=== PATIENT | female | born 1995 | race Caucasian/White ===

== ENCOUNTER 2019-04-30 12:59 | Emergency (ER) | payer MEDICAID, OTHER ==
[~2019-04-30] VITALS: Ht 162.6 cm; Wt 70.5 kg
[~2019-04-30 12:59] MED LIST: AMOXICILLIN 8751 TAB PO; FAT ABSORB1 CAP PO; MOTRIN 600600 MG/TAB PO; MULTIPLE VITAMI1 CAP PO; NORCO 325 MG-51 TAB PO; PAXIL 10MG10 MG PO; PERCOCET 325 MG1 TA2 PO; PRENATAL1 TA1 PO; SLOW FE45 MG PO; VITAMIN B610 MG PO; ZOFRAN 4MG T4 MG/TAB PO
[2019-04-30 13:02] VITALS: TEMP 97.7
[2019-04-30] MEDS ORDERED: PRENATAL PO (13:08)
[2019-04-30] MEDS ORDERED: ZITHROMAX Z PA250 MG PO (13:27)
[2019-04-30 13:44] VITALS: BP 120/78; PULSE 97
== END 2019-04-30 13:46 | disposition home or self-care (01) ==
LOC: COL.ER 12:59
DX: O99.512 Diseases of the respiratory system complicating pregnancy, second trimester (principal); J20.9 Acute bronchitis, unspecified; Z3A.21 21 weeks gestation of pregnancy

== ENCOUNTER 2019-07-07 11:05 | Emergency (ER) | payer OTHER, MEDICAID ==
[~2019-07-07] VITALS: Ht 162.6 cm; Wt 77.3 kg
[~2019-07-07 11:05] MED LIST changes: +PRENATAL PO; +ZITHROMAX Z PA250 MG PO
[2019-07-07 11:42] VITALS: TEMP 98.4
[2019-07-07 11:59] LABS: COLLECTION METHOD CLEAN CATCH
[2019-07-07 12:17] LABS: MUCOUS Present /lpf; PH 7 (5-8); SQUAMOUS EPITHELIAL 0-2 /hpf; URINE APPEARANCE Hazy; URINE BACTERIA Rare /hpf; URINE BILIRUBIN Negative (NEGATIVE); URINE BLOOD Negative (NEGATIVE); URINE COLOR Yellow; URINE GLUCOSE Negative (NEGATIVE); URINE KETONE Negative (NEGATIVE); URINE LEUKOCYTE ESTERASE Trace (NEGATIVE); URINE NITRATE Negative (NEGATIVE); URINE PROTEIN(semi-quant) 1+ (NEGATIVE); URINE RBC 0-2 /hpf; URINE UROBILINOGEN Negative (NEGATIVE)
--- NOTE | 2019-07-07 12:40 | NUR ---
RN to bedside for FHR strip. , 29wks per patient. Patient in ER for flu like symptoms. FHR strip obtained. FHR baseline 145-150bpm, moderate variability, no decelerations, audible movement. FHR appropriate for gestational age. Denies any complications/concerns.
[2019-07-07] MEDS ORDERED: TAMIFLU 75MG75 MG PO (13:08)
[2019-07-07 13:31] VITALS: BP 121/76; PULSE 94
[2019-07-08] MEDS ORDERED: ZOFRAN ODT4 MG PO (03:01)
== END 2019-07-07 13:33 | disposition home or self-care (01) ==
LOC: COL.ER 11:05
PROVIDERS: Emergency Medicine
DX: O99.513 Diseases of the respiratory system complicating pregnancy, third trimester (principal); J10.1 Influenza due to other identified influenza virus with other respiratory manifestations; O99.343 Other mental disorders complicating pregnancy, third trimester; F41.9 Anxiety disorder, unspecified; Z90.89 Acquired absence of other organs; Z3A.29 29 weeks gestation of pregnancy

== ENCOUNTER 2019-07-08 02:38 | Emergency (ER) | payer OTHER, MEDICAID ==
[~2019-07-08] VITALS: Ht 162.6 cm; Wt 77.3 kg
[~2019-07-08 02:38] MED LIST changes: +TAMIFLU 75MG75 MG PO
[2019-07-08 02:42] VITALS: BP 107/60; TEMP 97.4
[2019-07-08] MEDS ORDERED: ZOFRAN ODT4 MG PO (03:01)
[2019-07-08 03:19] LABS: HEMOGLOBIN 11.3 g/dl (12.5-16.0); MEAN CELL VOLUME 91 fl (80.0-100.0); MEAN CORPUSCULAR HEMOGLOBIN 31 pg (27.0-31.0); MEAN CORPUSCULAR HGB CONC 34 g/dl (33.0-37.0); MEAN PLATELET VOLUME 10.4 fl (7.4-10.4); PLATELET COUNT 171 K/mm3 (130-400); RED BLOOD COUNT 3.62 M/mm3 (4.10-5.30); REDCELL DISTRIBUTION WIDTH-CV 12.6 % (11.5-14.5)
[2019-07-08 03:23] LABS: HEMATOCRIT 32.9 % (37.0-47.0)
--- NOTE | 2019-07-08 03:30 | NUR ---
RN at bedside for FHR monitoring. . 29+ weeks per patient. Patient seen 07/07/19 in ED for flu-like symptoms. Patient states she was diagnosed with Influenza and was seen in ED by yesterday. FHR strip obtained. FHR baseline 125bpm with moderate variability. Prolonged accels noted. No decels noted. Audible movement. FHR tracing appropriate for gestational age. Patient denies any -related complications or concerns. Encouraged patient to increase fluid intake as tolerable while sick.
[2019-07-08 03:31] LABS: ALBUMIN 3.9 gm/dL (3.5-5.0); BILIRUBIN,TOTAL 0.5 mg/dL (0.0-1.0); CALCIUM 8.9 mg/dL (8.4-10.2); CREATININE, serum 0.48 (0.52-1.25); POTASSIUM 3.5 mmol/L (3.4-5.0)
[2019-07-08 03:55] LABS: BAND 20 % (0-10); LYMPHOCYTE 5 % (20.0-51.0); METAMYELOCYTE 3 % (0-0); NEUTROPHILS 61 % (42.0-75.2); PLATELET ESTIMATE NORMAL (NORMAL)
[2019-07-08 04:20] VITALS: PULSE 97
== END 2019-07-08 04:20 | disposition home or self-care (01) ==
LOC: COL.ER 02:38
PROVIDERS: Emergency Medicine
DX: O99.513 Diseases of the respiratory system complicating pregnancy, third trimester (principal); J10.1 Influenza due to other identified influenza virus with other respiratory manifestations; O21.9 Vomiting of pregnancy, unspecified; Z90.89 Acquired absence of other organs; Z3A.29 29 weeks gestation of pregnancy
CPT/HCPCS: J2405; J2550; J7030

== ENCOUNTER 2019-08-15 09:16 | Outpatient (CLI) | payer MEDICAID ==
[~2019-08-15] VITALS: Ht 160 cm; Wt 80.0 kg
[~2019-08-15 09:16] MED LIST changes: +ZOFRAN ODT4 MG PO
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
[2019-08-15 10:30] VITALS: BP 126/71; PULSE 82; TEMP 97.6
== END 2019-08-15 10:30 | disposition home or self-care (01) ==
LOC: LDRO 09:16
DX: O62.9 Abnormality of forces of labor, unspecified (principal); Z3A.35 35 weeks gestation of pregnancy

== ENCOUNTER 2019-08-25 06:26 | Emergency (ER) | payer MEDICAID ==
[~2019-08-25] VITALS: Ht 160 cm; Wt 81.8 kg
[2019-08-25 06:30] VITALS: PULSE 88; TEMP 97.3
--- NOTE | 2019-08-25 07:01 | NUR ---
Patient in ER for n/v/d. Reports good movement and irregular cramping. Denies vaginal bleeding, leaking of fluid, or painful contractions. , 37wks. Denies concerns. FHR 120s, moderate variability, accelerations, no decelerations. Irritability show per toco. Abdomen palpates soft. Instructed to call [facility] or L&D with any concerns. Verbalized understanding.
[2019-08-25 08:13] LABS: BASO % 0.3 % (0.0-2.0); EOS # 0.3 (0.0-0.7); EOS % 2.4 % (0-4.0); GRAN # 9.2 (1.4-6.5); GRAN % 78.3 % (42.2-75.2); HEMOGLOBIN 11.1 g/dl (12.5-16.0); LYMPH # 1.3 (1.2-3.4); LYMPH % 11.3 % (20.0-51.0); MEAN CELL VOLUME 90 fl (80.0-100.0); MEAN CORPUSCULAR HEMOGLOBIN 29 pg (27.0-31.0); MEAN CORPUSCULAR HGB CONC 33 g/dl (33.0-37.0); MONO # 0.7 (0.1-0.6); MONO % 6.3 % (1.7-9.3); PLATELET COUNT 172 K/mm3 (130-400); REDCELL DISTRIBUTION WIDTH-CV 13.3 % (11.5-14.5)
[2019-08-25 08:14] LABS: HEMATOCRIT 34.1 % (37.0-47.0)
[2019-08-25 08:18] LABS: ALBUMIN 3.8 gm/dL (3.5-5.0); BILIRUBIN,TOTAL 0.6 mg/dL (0.0-1.0); CALCIUM 8.9 mg/dL (8.4-10.2); CREATININE, serum 0.44 (0.52-1.25); POTASSIUM 4.2 mmol/L (3.4-5.0); TOTAL PROTEIN 7.1 gm/dL (6.4-8.2)
[2019-08-25 08:33] LABS: COLLECTION METHOD CLEAN CATCH
[2019-08-25 08:50] LABS: MUCOUS Present /lpf; PH 6 (5-8); URINE APPEARANCE Hazy; URINE BACTERIA None Seen /hpf; URINE BILIRUBIN Negative (NEGATIVE); URINE BLOOD Negative (NEGATIVE); URINE COLOR Yellow; URINE GLUCOSE Negative (NEGATIVE); URINE KETONE Negative (NEGATIVE); URINE LEUKOCYTE ESTERASE Negative (NEGATIVE); URINE NITRATE Negative (NEGATIVE); URINE PROTEIN(semi-quant) 1+ (NEGATIVE); URINE RBC 0-2 /hpf
[2019-08-25] MEDS ORDERED: PHENERGAN 25 TA25 MG PO (10:13)
[2019-08-25 10:30] VITALS: BP 123/67
== END 2019-08-25 10:30 | disposition home or self-care (01) ==
LOC: COL.ER 06:26
PROVIDERS: Emergency Medicine
DX: O21.2 Late vomiting of pregnancy (principal); O26.893 Other specified pregnancy related conditions, third trimester; R19.7 Diarrhea, unspecified; Z3A.37 37 weeks gestation of pregnancy
CPT/HCPCS: J2550; J7030

== ENCOUNTER 2019-09-07 07:11 | Inpatient (IN) | payer MEDICAID ==
[2019-09-07] VITALS (46 sets, daily range): BP systolic 95–143; BP diastolic 48–92; PULSE 68–137; TEMP 97.5–98.7
[~2019-09-07] VITALS: Ht 160 cm; Wt 81.8 kg
[~2019-09-07 07:11] MED LIST changes: +PHENERGAN 25 TA25 MG PO
--- NOTE | 2019-09-07 07:20 | NUR ---
Patient ambulatory to LR5 with significant other, changed into gown, FHR/TOCO monitors placed and explained. Patient denies any regular contractions, leaking of fluid, vaginal bleeding, or decreased movement. Plan of care discussed. Assessmennt completed/consents gone over and signed/ packet given. 0740: IV started in left hand per Lukas RN, blood obtained and to lab, LR infusing. Oriented to room and discussed plan. 0800: Pitocin induction discussed and patient agrees to plan. Pitocin started at 2mU per protocol. 0840: Dr. Julian at bedside and assessing patient and FHR strip. SVE per physician /-2 and AROM attempted and unsuccessful at this time. 0858: Patient calls out and states she thinks her water broke. This RN at bedside and towel wet with clear fluid and patient continuing ot leak fluid. SROM noted at this time. Dr. Julian called and notified.
[2019-09-07 08:22] LABS: BASO % 0.3 % (0.0-2.0); EOS # 0.3 (0.0-0.7); EOS % 2.2 % (0-4.0); GRAN # 11.4 (1.4-6.5); HEMOGLOBIN 11.6 g/dl (12.5-16.0); LYMPH # 1.6 (1.2-3.4); LYMPH % 11.1 % (20.0-51.0); MEAN CELL VOLUME 86 fl (80.0-100.0); MEAN CORPUSCULAR HEMOGLOBIN 29 pg (27.0-31.0); MEAN CORPUSCULAR HGB CONC 34 g/dl (33.0-37.0); MEAN PLATELET VOLUME 11.5 fl (7.4-10.4); MONO # 0.9 (0.1-0.6); MONO % 6.4 % (1.7-9.3); PLATELET COUNT 179 K/mm3 (130-400); RED BLOOD COUNT 3.95 M/mm3 (4.10-5.30); REDCELL DISTRIBUTION WIDTH-CV 13.4 % (11.5-14.5)
[2019-09-07 08:23] LABS: HEMATOCRIT 34.1 % (37.0-47.0)
--- NOTE | 2019-09-07 12:35 | NUR ---
Dr. Julian at bedside and assessing patient/FHR strip. SVE /-2 per physician. Orders to increase pitocin to 30mU as needed. 1350: Patient requesting epidural and Rafa Ruiz PHILOSOPHY AND RELIGION INSTRUCTOR notified. 1405: Patient sittin up on edge of bed and Rafa Ruiz at bedside for placement of epidural. 1412: Single shot given and patient tolerates well. 1417: Test dose given and patient tolerates well. 1420: Patient repositioned and safety precautions gone over. Plan of care discussed. 1445: Knight catheter placed and patient tolerates well. SVE-/-2 1515: Subtle late deceleration noted and patient repositioned. 1610: at bedside assessing patient and FHR strip. SVE per physician . Orders to sit up in silvia position. Patient repositioned and FHR baseline 125-130bpm. 1615: Patient sitting up with legs lowered and FHR decreases to 100-115 for approx. 2-3 minutes and spontaneously returns to baseline. 1640: SVE-- and patient right lateral with left leg in stirrup. 1650: Patient left lateral with right leg in stirrup. Dr. Julian at nurses station revewing FHR strip and updated.
[2019-09-07 15:36] LABS: TRICYCLIC ANTIDEPRESS URINE NEGATIVE
--- NOTE | 2019-09-07 17:00 | NUR ---
Dr Julian at bedside and SVE-/+2 Patient prepped for vaginal delivery. Bed taken apart 1703: Knight catheter removed and patient tolerates. Pericare done. 1706: Patient begins to push with contractions per Dr Ramírez orders. Patient vomits between contractions. 1711: Patient pushes with contractions and spontaneous viable baby boy head followed by body and to patient abdomen, Tamie RN assumes care of infant. Cord clamped and cut by physician and cord blood obtained. Dr. Julian begins to repair laceration. 1717: Spontaneous delivery of placenta and pitocin bolus started at 333mu per protocol. Fundal massage done/firm/bleeding WNL Pericare done, bed put together, patient repositioned and ice pack to perineum. Plan of care discussed.
--- NOTE | 2019-09-07 17:30 | NUR ---
Patient notified that UDS was positive for marijuana and that retail service lead merchandiser recommends not to breast feed and will place urine bag on baby to catch urine for screening. Patient agrees to plan
--- NOTE | 2019-09-07 19:00 | NUR ---
1900 EPID CATH REMOVED. REGULAR DIET TAKEN. SEVERAL VISITORS IN ROOM
--- NOTE | 2019-09-07 19:30 | NUR ---
1930 ATTEMPTED TO STAND. UNABLE TO BEAR WEIGHT ON LEFT LEG. RETURNED TO BED AND PERICARE DONE. TO WHEELCHAIR AND TO ROOM 207. TO BED AND ORIENTED TO ROOM. CHANDANA WELL.
--- NOTE | 2019-09-07 20:45 | NUR ---
2044 UP TO BR WITH SOME ASSIST. VOIDED 400CC AND PERICARE DONE. RETURNED TO BED. INT DCD.
[2019-09-08 03:00] VITALS: BP 108/86; PULSE 83; TEMP 98.2
[2019-09-08 07:10] VITALS: BP 113/74; PULSE 81; TEMP 97.4
[2019-09-08] MEDS ORDERED: IBU800 M1 PO (09:13)
--- NOTE | 2019-09-08 10:26 | NUR ---
Initial visit; Parents thanked Gift Shop Clerk for offering congratulations and God's blessings for the of their son. Gift Shop Clerk thanked family for choosing [facility].
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
[2019-09-08 12:30] VITALS: BP 122/81; PULSE 88; TEMP 97.4
[2019-09-08 15:15] VITALS: BP 122/86; PULSE 96; TEMP 97.7
--- NOTE | 2019-09-12 11:45 | NUR ---
The patient's baby cord blood tested positive for cannabinoids. A CPS report was made. Report # [id number]. The patient's baby is Jose Manuel Thakkar Dotina, [id number].
== END 2019-09-08 19:25 | disposition home or self-care (01) | DRG 807 ==
LOC: LDR 07:11 → OB 12:25
PROVIDERS: ADMIT Student in an Organized Health Care Education/Training Program
PROC: 10E0XZZ Delivery of Products of Conception, External Approach (ICD-10-PCS; principal; 2019-09-07)
PROC: 10907ZC Drainage of Amniotic Fluid, Therapeutic from Products of Conception, Via Natural or Artificial Opening (ICD-10-PCS; 2019-09-07)
PROC: 3E033VJ Introduction of Other Hormone into Peripheral Vein, Percutaneous Approach (ICD-10-PCS; 2019-09-07)
PROC: 0UQMXZZ Repair Vulva, External Approach (ICD-10-PCS; 2019-09-07)
DX: O76 Abnormality in fetal heart rate and rhythm complicating labor and delivery (principal); Z37.0 Single live birth; F12.90 Cannabis use, unspecified, uncomplicated; O69.81X0 Labor and delivery complicated by cord around neck, without compression, not applicable or unspecified; O32.6XX0 Maternal care for compound presentation, not applicable or unspecified; O70.0 First degree perineal laceration during delivery; Z3A.39 39 weeks gestation of pregnancy
CPT/HCPCS: J2590; J7120